=== PATIENT | female | born 1935 | race Hispanic/Latino ===

== ENCOUNTER → 2024-06-04 | Outpatient (REF) | payer MEDICARE ==
[2024-06-04 11:05] LABS: CREATININE, SERUM 2.44 mg/dL (0.57-1.11)
== END ==
LOC: CT 10:02
PROVIDERS: ATTEND Internal Medicine Cardiovascular Disease
DX: R06.02 Shortness of breath (principal)
CPT/HCPCS: 36415; 82565; 84520